=== PATIENT | female | born 1975 ===

== ENCOUNTER → 2025-06-10 11:26 | Outpatient (ROUT) | payer SELFPAY ==
[2025-06-10 11:32] LABS: Appearance Urine UA CLOUDY; Bilirubin Urine UA NEGATIVE (NEGATIVE); Color Urine UA YELLOW; Glucose Urine UA NEGATIVE (Negative); Ketones Urine UA NEGATIVE (NEGATIVE); Leukocyte Esterase Urine UA NEGATIVE (NEGATIVE); Nitrite Urine UA POSITIVE (Negative); Occult Blood Urine UA NEGATIVE (Negative); Protein Urine UA NEGATIVE (Negative); Specific Gravity Urine UA 1.015 (1.000-1.035); Urobilinogen Urine UA 0.2 E.U./dL (0.2); pH Urine UA 8.0 (4.5-8.0)
[2025-06-10 11:38] LABS: Culture Indicated Urine Specimen Cultured
== END ==
LOC: LAB 11:27
PROVIDERS: Visit Provider Hospitalist
DX: R30.0 Dysuria (principal); R10.24 Suprapubic pain; R10.A0 Flank pain, unspecified side
CPT/HCPCS: 81001; 87077; 87086